=== PATIENT | female | born 1945 | race Caucasian/White ===

== ENCOUNTER 2017-07-14 13:37 | Observation (INO) | payer MEDICARE, BC ==
[~2017-07-14] VITALS: Ht 162.6 cm; Wt 62.4 kg
--- NOTE | ~2017-07-14 | HEMODYNAMI ---
PATIENT:ANGELICA NAJERA MEDICAL RECORD: [id number] : 43 [facility] ADMISSION DATE: 07/14/17 Generatedon:07/15/201711:28 Patient name: ANGELICA NAJERA Patient #: [id number] SSN: : Date of study: 07/15/2017 Page: Of Hemodynamic Procedure Report Patient Data Patient Demographics Procedure consent was obtained First Name: ANGELICA Gender: Female Last Name: DANIA : 1945 [facility] Initial: KIMANI Age: 71 year(s) Patient #: [id number] Race: Unknown Additional ID: [id number] Contact details [address]: [address] [place] [address] State: [place] City: [place] Zip code: [address] Past Medical History Allergies Allergen Reaction Date Comments Reported Other allergy 07/15/2017 PCN Admission Admission Data Admission Date: 07/14/2017 Admission Time: 17:05 Admit Source: Other Room #: D.2114 Weight (lbs.): 136.69 Weight (kg.): 62 Procedure Procedure Types Cath Procedure Diagnostic Procedure [facility] w/Coronaries Procedure Description Procedure Date Procedure Date: 07/15/2017 Procedure Start Time: 11:15 Procedure End Time: 11:25 Procedure Staff Name Function Marcelo Fried MD Performing Physician Wilfredo Youssef RT Monitor Clement Boo RT Scrub Domenico Baer RN Nurse Procedure Data Cath Procedure Fluoroscopy Diagnostic fluoroscopy Total fluoroscopy Time: 0.8 time: 0.8 min min Diagnostic fluoroscopy Total fluoroscopy dose: 47 dose: 47 mGy mGy Contrast Material Contrast Material Type Amount (ml) Isovue 300 54 Entry Location Entry Primary Successful Side Size Upsize Upsize Entry Closure Succes sful Closure Location (Fr) 1 (Fr) 2 (Fr) Remarks Device Remarks Femoral Right 5 Fr Exoseal artery Estimated blood loss: 10 ml Diagnostic catheters Device Type Used For End Catheter Placement MULTIPACK JL 4.0 5Fr Procedure catheter MULTIPACK 3DRC 5Fr Procedure catheter MULTIPACK Pigtail 5 Fr Procedure catheter Procedure Complications No complications Procedure Medications Medication Administration Route Dosage Oxygen etCO2 Nasal cannula 2 l/min Heparin Flush Bag added to field 2 bags (1000units/500ml NS) 0.9% NaCl I.V. 100 ml/hr Plavix P.O. 600 mg Fentanyl I.V. 50 mcg Versed I.V. 1 mg Fentanyl I.V. 50 mcg Versed I.V. 1 mg Fentanyl I.V. 50 mcg Fentanyl I.V. 50 mcg Hemodynamics Rest Heart Rate: 67 (bpm) Pressure Samples Time Site Value (mmHg) Purpose Heart Use Rate(bpm) 11:17 AO 102/52(71) Snapshot 65 Snapshots Pre Cath Intra NCS Post Cath Vital Signs Time Heart Resp SPO2 etCO2 NIBP (mmHg) Rhythm Pain Sedation Rate (ipm) (%) (mmHg) Status Level (bpm) 10:49:20 78 17 98 35.1 128/69(94) NSR 0 (11) 10(A) , No pain 10:53:36 72 16 100 31.4 139/69(107) NSR 0 (11) 10(A) , No pain 10:57:46 71 16 97 32.8 114/67(94) NSR 0 (11) 10(A) , No pain 11:01:56 67 16 97 21.6 108/67(85) NSR 0 (11) 10(A) , No pain 11:06:05 74 17 95 0 108/66(83) NSR 0 (11) 10(A) , No pain 11:10:15 77 17 94 0 102/63(82) NSR 0 (11) 10(A) , No pain 11:14:23 68 16 96 0 109/64(79) NSR 0 (11) 9(A) , No pain 11:18:33 68 16 92 9.7 108/63(81) NSR 0 (11) 9(A) , No pain 11:22:47 64 16 93 0 108/57(77) NSR 0 (11) 9(A) , No pain Medications Time Medication Route Dose Verified Delivered Reason Notes E ffectiveness by by 10:48:33 Oxygen etCO2 2 Marcelo Acuña Per Nasal l/min Fariha Baer RN physician cannula 10:48:42 Heparin Flush added 2 Marcelo Acuña used for Bag to bags Fariha Baer RN procedure (1000units/500ml field NS) 10:49:23 0.9% NaCl I.V. 100 Marcelo Acuña Per ml/hr Fariha Baer RN physician 10:53:40 Plavix P.O. 600 Marcelo Domenico for mg Fariha Baer RN antiplatelet therapy 11:12:04 Fentanyl I.V. 50 Marcelo Domenico for sedation mcg Fariha Baer RN 11:12:10 Versed I.V. 1 mg Marcelo Thompsony for sedation Fariha Baer RN 11:15:40 Fentanyl I.V. 50 Marcelo Domenico for sedation mcg Fariha Baer RN 11:15:45 Versed I.V. 1 mg Marcelo Thompsony for sedation Fariha Baer RN 11:17:25 Fentanyl I.V. 50 Marcelo Domenico for sedation mcg Fariha Baer RN 11:18:52 Fentanyl I.V. 50 Marcelo Thompsony for sedation mcg Fariha Baer RN Procedure Log Time Note 10:29:39 Informed consent obtained and on chart 10:29:42 Admit Source: Other 10:30:05 Diagnostic Cath status Elective 10:30:07 Wilfredo Youssef RT(R) sent for patient. Start room use. 10:30:07 Time tracking: Regular hours (M-F 7:00 - 5:00) 10:30:10 Plan of Care:Hemodynamics will remain stable., Cardiac rhythm will remain stable., Comfort level will be maintained., Respiratory function will remain adequate., Patient/ family verbilizes understanding of procedure., Procedure tolerated without complication., Recovers from procedure without complications.. 10:31:40 H&P Date Dictated: 07/15/2017 Within 30 days and on chart.. 10:42:55 Patient received from Med II to CCL 3 Alert and oriented. Tansferred to table in Supine position. 10:42:55 Warm blankets applied, and shelia hugger turned on for patient comfort. 10:42:56 Correct patient and procedure confirmed by team. 10:42:56 ECG and BP/O2 sat monitors applied to patient. 10:42:58 Pre-procedure instructions explained to patient. 10:42:59 Pre-op teaching completed and patient verbalized understanding. 10:43:02 Family in waiting room. 10:43:04 Patient NPO since Midnight. 10:43:14 Patient allergic to Other allergyPCN 10:43:18 Is the patient allergic to Iodine/contrast media? No. 10:48:11 Vital chart was started 10:48:33 Oxygen 2 l/min etCO2 Nasal cannula was administered by Domenico Baer RN; Per physician; 10:48:42 Heparin Flush Bag (1000units/500ml NS) 2 bags added to field was administered by Domenico Baer RN; used for procedure; 10:49:23 0.9% NaCl 100 ml/hr I.V. was administered by Domenico Baer RN; Per physician; 10:53:40 Plavix 600 mg P.O. was administered by Domenico Baer RN; for antiplatelet therapy; 10:53:40 Baseline sample Acquired. 10:53:46 Rhythm: sinus rhythm 10:53:48 Full Disclosure recording started 10:53:52 Is patient on blood thinner?Yes 10:53:54 ACC The patient was administered the following blood thiners within the last 24 hours: ACCPlavix 10:53:56 Patient diabetic? No. 10:53:57 Patient not . Patient is over age 55. 10:53:59 Previous problem with sedation/anesthesia? No ? 10:54:00 Snore? Yes 10:54:01 Sleep apnea? No 10:54:02 Deviated septum? No 10:54:02 Opens mouth fully? Yes 10:54:03 Sticks out tongue? Yes 10:54:05 Airway obstruction? No ? 10:54:07 Dentures? Yes IN 10:54:11 Pre procedure: right dorsailis pedis pulse 1+ Palpable, but thready & weak; easily obliterated 10:54:18 IV patent on arrival in right wrist with 0.9% NaCl at KVO. 10:54:20 Patient pain scale 0/10 ?. 10:54:22 Lab results completed and on chart. 10:54:25 Right groin area was prepped with chlora-prep and draped in sterile fashion 10:54:27 Alarms reviewed by R. N. 10:54:27 Sharps counted by scrub and verified by R.N. 10:54:32 Use device set Femoral Dx 10:54:34 PERCUTANEOUS ENTRY 19GA needle opened to sterile field. 10:54:34 Tegaderm 4 x 4 (1626W) opened to sterile field. 10:54:35 ACIST Manifold (05929) opened to sterile field. 10:54:36 ACIST Hand Control (91322) opened to sterile field. 10:54:36 ACIST Syringe (65291) opened to sterile field. 10:54:37 Bag Decanter (2002S) opened to sterile field. 10:54:37 Medline Cath Pack ([id number]) opened to sterile field. 10:54:39 DIAGNOSTIC WIRE .035 260cm J wire (443747) opened to sterile field. 10:54:40 DIAGNOSTIC Multipack 5Fr catheter set (VM5949) opened to sterile field. 10:54:51 SHEATH Prelude 5Fr 0.035 (ZNS-8O-32-035) opened to sterile field. 11:02:45 Physician paged 11:06:42 Patient Weight : 136.69 lbs 11:11:20 --------ALL STOP TIME OUT------ 11:11:20 Final Timeout: patient, procedure, and site verified with staff and physician. All members of the team are in agreement. 11:11:23 Right groin site verified by team. 11:11:26 Physical assessment completed. ASA score P 2 - A patient with mild systemic disease as per Marcelo Fried MD. 11:11:29 Sedation plan: IV Moderate Sedation Medication:Versed, Fentanyl 11:12:04 Fentanyl 50 mcg I.V. was administered by Domenico Baer RN; for sedation; 11:12:10 Versed 1 mg I.V. was administered by Domenico Baer RN; for sedation; 11:15:03 Procedure started. 11:15:06 Local anesthetic to right femoral artery with Lidocaine 2% by Marcelo Fried MD.INITIAL ACCESS ONLY 11:15:35 Zero performed for pressure channel P1 11:15:40 Fentanyl 50 mcg I.V. was administered by Domenico Baer RN; for sedation; 11:15:45 Versed 1 mg I.V. was administered by Domenico Baer RN; for sedation; 11:15:51 A 5 Fr sheath was inserted into the Right Femoral artery 11:16:45 A MULTIPACK Pigtail 5 Fr catheter was advanced over the wire and used for Procedure. 11:16:56 LV angiography performed. 11:16:57 LV gram done using GOODMAN 11:17:03 EF : 60 % 11:17:07 Injector settings: Ml/sec: 10, Volume: 20, 11:17:09 Catheter removed. 11:17:20 A MULTIPACK JL 4.0 5Fr catheter was advanced over the wire and used for Procedure. 11:17:25 Fentanyl 50 mcg I.V. was administered by Domenico Baer RN; for sedation; 11:17:38 LCA angiography performed. 11:18:25 Catheter removed. 11:18:30 A MULTIPACK 3DRC 5Fr catheter was advanced over the wire and used for Procedure. 11:18:52 Fentanyl 50 mcg I.V. was administered by Domenico Baer RN; for sedation; 11:18:57 RCA angiography performed. 11:18:59 Catheter removed. 11:19:08 EXOSEAL 5Fr (EX500) opened to sterile field. 11:19:25 Sheath removed intact; hemostasis achieved with Exoseal to the Right Femoral artery. 11:19:27 Procedure ended.(Physican Out) 11:22:03 Fluoroscopy time 00.80 minutes. 11:22:14 Fluoroscopy dose: 47 mGy 11:22:14 Flurop Dose total: 47 11:22:19 Contrast amount:Isovue 300 54ml. 11:22:21 Sharps counted by scrub and verified by R.N. 11:22:23 Insertion/operative site no bleeding no hematoma. 11:22:26 Post-op/insertion site Right Femoral artery dressed using a 4 x 4 and Tegaderm. 11:22:27 Post Procedure Pulses reassessed and unchanged 11:22:33 Post-procedure physical assessment completed. ASA score P 2 - A patient with mild systemic disease as per Marcelo Fried MD. 11:22:35 Post procedure rhythm: unchanged. 11:22:38 Estimated blood loss: 10 ml 11:22:39 Post procedure instruction explained to patient.Patient verbalizes understanding. 11:22:39 Patient needs reinforcement of post procedure teaching. 11:22:44 Procedure and supply charges have been captured, reviewed, submitted and are correct. 11:22:46 Procedure Complication : No complications 11:25:20 Vital chart was stopped 11:25:20 See physician's report for complete and final results. 11:25:24 Report given to PCU. 11:25:28 Patient transfered to PCU with Bed. 11:25:30 Procedure ended. 11:25:30 Full Disclosure recording stopped 11:25:35 End room use (Document Last) Device Usage Item Name Manufacture Quantity Catalog Number Hospital Part Current M inimal Lot# / Charge Number Stock Stock Serial# Code PERCUTANEOUS Cook Medical 1 [id number] 5 ENTRY 19GA needle Tegaderm 4 x 4 3M 1 1626W 247241 832050 957582 5 (1626W) ACIST Manifold Acist 1 03738 463038 152638 581001 5 (31930) [employer] Inc ACIST Hand Acist 1 78741 420763 543404 707610 5 Control (96083) [employer] Inc ACIST Syringe Acist 1 69816 546739 209563 560326 2 0 (16765) [employer] Bag Decanter Microtek 1 2002S 661860 02784 728820 5 (2001S) Medical Inc. Medline Cath Cardinal 1 [id number] 909746 62826 168616 5 Pack Health ([id number]) DIAGNOSTIC WIRE St Romulo 1 656752 020096 587372 725610 3 0 .035 260cm J wire (563257) DIAGNOSTIC Cardinal 1 EJ3526 302297 29247 158139 3 0 Multipack 5Fr Health catheter set (MN5527) SHEATH Prelude Merit 1 [id number]-3Y-82-035 263866 154213 136681 5 5Fr 0.035 Medical (UPG-0D-94-035) MULTIPACK JL Cardinal 1 503322 5 4.0 5Fr Health catheter MULTIPACK 3DRC Cardinal 1 750004 5 5Fr catheter Health MULTIPACK Cardinal 1 807639 5 Pigtail 5 Fr Health catheter EXOSEAL 5Fr Cardinal 1 EX500 261030 897146 779432 1 0 (EX500) Health Signature Audit [place] Stage Time Signature Unsigned Intra-Procedure 07/15/2017 Wilfredo Youssef 11:27:51 AM RT(R) Signatures Monitor : Wilfredo Youssef RT Signature : Date : Time : [facility] [address] [place] [address]
--- NOTE | ~2017-07-14 | OP ---
PATIENT NAME: ANGELICA NAJERA MEDICAL RECORD: [id number] :43 LOCATION:D.M2 D.2114 ADMISSION DATE:07/14/17 SURGEON: PRIMO ROD MD DATE OF OPERATION: 07/15/2017 PROCEDURES: 1. Left heart catheterization. 2. Selective angiography. 3. Left ventriculogram. INDICATIONS: Palpitations, chest pain, near syncope. PROCEDURE IN DETAIL: After informed consent was obtained and after detailed explanation of risks, benefits as well as alternative therapies, the patient elected to proceed with angiogram and heart catheterization. The right femoral area was prepped and draped in normal sterile fashion. The right femoral artery was cannulated via modified Seldinger technique with placement of a 6-Bengali sheath. All catheters exchanged through this sheath. FINDINGS: The left ventriculogram was performed in standard 30-degree GOODMAN view, reveals good cardiac wall motion throughout all segments. Overall ejection fraction estimated 60%. SELECTIVE CORONARY ANGIOGRAPHY: Left main, left anterior descending, left circumflex, right coronary artery are all smooth-walled vessels with no angiographic evidence of coronary artery disease. OVERALL IMPRESSION: 1. No angiographic evidence of coronary artery disease. 2. Normal left heart pressures. 3. Normal left ventricular systolic function. Chest pain is noncardiac in etiology, with standard medical management and treatment of the palpitations and dysrhythmia. TRANSINT:[id number] Voice Confirmation ID: [id number] DOCUMENT ID: [id number] PRIMO ROD MD at 0956 CC: JAZMÍN VELA MD [id number] DICTATION DATE: 07/15/17 1123 SINKER WINDER: 07/15/17 1420 DIS IN 07/15/17 [facility] [address] [place] [address]
[2017-07-14 14:40] LABS: BASOPHILS 0.3 % (0-2); EOSINOPHILS 1.1 % (0-7); HEMATOCRIT 41.5 % (36.0-48.0); HEMOGLOBIN 14.1 g/dL (12-16); IMMATURE GRANULOCYTES 0.8 % (0-5); LYMPHOCYTES 27.4 % (15-50); MCH 30.4 pg (26.0-34.0); MCV 89.4 fL (80.0-100.0); MONOCYTES 9.3 % (2-11); NEUTROPHILS 61.1 % (40-80); PLATELET COUNT 262 10x3/uL (130-400); RBC 4.64 10x6/uL (4.00-5.40); RDW 12.5 % (11.5-14.5); WBC 11.8 10x3/uL (4.8-10.8)
[2017-07-14 15:02] LABS: ALBUMIN 4.2 g/dL (3.4-5.0); ALKALINE PHOSPHATASE 73 U/L (46-116); ALT (SGPT) 29 U/L (10-68); BILIRUBIN - TOTAL 0.69 mg/dL (0.2-1.3); CALC OSMOLALITY 283 mosm/kg (275-300); CARBON DIOXIDE 29.7 mmol/L (21.0-32.0); CHLORIDE - SERUM 100 mmol/L (98-107); CREATININE - SERUM 1.5 mg/dL (0.6-1.3); GLUCOSE 103 mg/dL (74-106); POTASSIUM - SERUM 3.3 mmol/L (3.5-5.1); PROTEIN - SERUM 7.7 g/dL (6.4-8.2); SODIUM 139 mmol/L (136-145); UREA NITROGEN 28 mg/dL (7-18); eGFR NON AFRICAN AMERICAN 36 mL/min (90-120)
[2017-07-14 15:04] LABS: CREATINE KINASE 31 UL (21-215)
[2017-07-14 15:05] LABS: TROPONIN-I < 0.017 ng/mL (0.000-0.060)
[2017-07-14 16:38] LABS: APPEARANCE CLEAR (CLEAR); BILIRUBIN NEGATIVE (NEGATIVE); COLOR YELLOW (YELLOW); GLUCOSE NEGATIVE (NEGATIVE); KETONE NEGATIVE (NEGATIVE); NITRITE NEGATIVE (NEGATIVE); PROTEIN NEGATIVE (NEGATIVE); SPECIFIC GRAVITY 1.015 (1.005-1.020); UROBILINOGEN NORMAL (NORMAL)
[2017-07-14 16:46] LABS: BACTERIA FEW /hpf (NONE SEEN); RED CELLS - URINE OCC /hpf (0-5); WHITE CELLS - URINE 0-5 /hpf (0-5)
[2017-07-14 17:08] LABS: CKMB 0.3 U/L (0.0-3.6); CREATINE KINASE 29 UL (21-215)
[2017-07-14 17:11] LABS: TROPONIN-I < 0.017 ng/mL (0.000-0.060)
[2017-07-14] MEDS ORDERED: LISINOPRIL-HCTZ1 T11 PO (20:43)
[2017-07-14] MEDS ORDERED: BAYER CHEWABLE81 MG PO (20:44)
[2017-07-14] MEDS ORDERED: OXYBUTYNIN CHLOR5 MG PO (20:46)
[2017-07-14] MEDS ORDERED: LIPITOR20 MG PO (20:47)
[2017-07-14 21:39] VITALS: BMI 23.5
[2017-07-14 23:41] LABS: CKMB 0.5 U/L (0.0-3.6); CREATINE KINASE 23 UL (21-215); TROPONIN-I < 0.017 ng/mL (0.000-0.060)
[2017-07-15 04:00] VITALS: BP 144/44
[2017-07-15 06:44] LABS: BASOPHILS 0.4 % (0-2); EOSINOPHILS 2.6 % (0-7); HEMATOCRIT 38.7 % (36.0-48.0); LYMPHOCYTES 42.9 % (15-50); MCH 30.3 pg (26.0-34.0); MCHC 33.6 g/dL (31.0-37.0); MCV 90.2 fL (80.0-100.0); MONOCYTES 9.9 % (2-11); NEUTROPHILS 43.2 % (40-80); PLATELET COUNT 245 10x3/uL (130-400); RBC 4.29 10x6/uL (4.00-5.40); RDW 12.7 % (11.5-14.5)
[2017-07-15 06:47] LABS: WBC 8.2 10x3/uL (4.8-10.8)
[2017-07-15 07:03] LABS: CALC OSMOLALITY 281 mosm/kg (275-300); CALCIUM 8.7 mg/dL (8.5-10.1); CARBON DIOXIDE 28.2 mmol/L (21.0-32.0); CHLORIDE - SERUM 108 mmol/L (98-107); CKMB 0.5 U/L (0.0-3.6); CREATINE KINASE 20 UL (21-215); CREATININE - SERUM 0.9 mg/dL (0.6-1.3); GLUCOSE 89 mg/dL (74-106); POTASSIUM - SERUM 4.4 mmol/L (3.5-5.1); SODIUM 139 mmol/L (136-145); TROPONIN-I < 0.017 ng/mL (0.000-0.060); UREA NITROGEN 27 mg/dL (7-18); eGFR NON AFRICAN AMERICAN 65 mL/min (90-120)
[2017-07-15 08:07] VITALS: Ht 162.6 cm; Wt 62.4 kg
[2017-07-15 08:21] VITALS: BP 105/59
== END 2017-07-15 17:18 | disposition home or self-care (01) ==
LOC: D.ER 13:37 → D.EDHOLD 17:05 → D.M2 17:05 → OBSVTIME 17:07 → D.M2 19:35
PROVIDERS: Emergency Medicine; Family Medicine; Nurse Practitioner Family
DX: R07.89 Other chest pain (principal); R00.2 Palpitations; I10 Essential (primary) hypertension; E78.5 Hyperlipidemia, unspecified

== ENCOUNTER 2017-07-15 17:16 | Observation (INO) | payer MEDICARE, BC ==
[~2017-07-15] VITALS: Ht 162.6 cm; Wt 62.7 kg
[~2017-07-15 17:16] MED LIST: BAYER CHEWABLE81 MG PO; LIPITOR20 MG PO; LISINOPRIL-HCTZ1 T11 PO; OXYBUTYNIN CHLOR5 MG PO
[2017-07-15 20:59] LABS: BASOPHILS 0.2 % (0-2); EOSINOPHILS 0.3 % (0-7); HEMATOCRIT 37.5 % (36.0-48.0); HEMOGLOBIN 12.8 g/dL (12-16); IMMATURE GRANULOCYTES 0.9 % (0-5); LYMPHOCYTES 20.8 % (15-50); MCH 30.6 pg (26.0-34.0); MCHC 34.1 g/dL (31.0-37.0); MCV 89.7 fL (80.0-100.0); MEAN PLATELET VOLUME 10.9 fL (7.4-10.4); MONOCYTES 7.3 % (2-11); NEUTROPHILS 70.5 % (40-80); PLATELET COUNT 268 10x3/uL (130-400); RBC 4.18 10x6/uL (4.00-5.40); RDW 12.8 % (11.5-14.5); WBC 16.4 10x3/uL (4.8-10.8)
[2017-07-15 21:07] LABS: ALBUMIN 3.5 g/dL (3.4-5.0); ALKALINE PHOSPHATASE 64 U/L (46-116); ALT (SGPT) 22 U/L (10-68); CALC OSMOLALITY 280 mosm/kg (275-300); CALCIUM 8.6 mg/dL (8.5-10.1); CARBON DIOXIDE 28.2 mmol/L (21.0-32.0); CHLORIDE - SERUM 106 mmol/L (98-107); GLUCOSE 123 mg/dL (74-106); POTASSIUM - SERUM 4.1 mmol/L (3.5-5.1); PROTEIN - SERUM 6.6 g/dL (6.4-8.2); SODIUM 138 mmol/L (136-145); UREA NITROGEN 25 mg/dL (7-18); eGFR NON AFRICAN AMERICAN 58 mL/min (90-120)
[2017-07-15 21:11] LABS: TROPONIN-I < 0.017 ng/mL (0.000-0.060)
[2017-07-16 02:11] LABS: CREATINE KINASE 18 UL (21-215)
[2017-07-16 02:21] LABS: TROPONIN-I < 0.017 ng/mL (0.000-0.060)
[2017-07-16 06:51] LABS: APPEARANCE CLEAR (CLEAR); BILIRUBIN NEGATIVE (NEGATIVE); COLOR YELLOW (YELLOW); GLUCOSE NEGATIVE (NEGATIVE); KETONE NEGATIVE (NEGATIVE); NITRITE NEGATIVE (NEGATIVE); PROTEIN NEGATIVE (NEGATIVE)
[2017-07-16 07:00] LABS: BASOPHILS 0.5 % (0-2); EOSINOPHILS 1.2 % (0-7); HEMATOCRIT 38.4 % (36.0-48.0); IMMATURE GRANULOCYTES 0.6 % (0-5); LYMPHOCYTES 34.3 % (15-50); MCH 30.4 pg (26.0-34.0); MCHC 33.9 g/dL (31.0-37.0); MCV 89.9 fL (80.0-100.0); MEAN PLATELET VOLUME 10.8 fL (7.4-10.4); MONOCYTES 8.3 % (2-11); NEUTROPHILS 55.1 % (40-80); PLATELET COUNT 225 10x3/uL (130-400); RBC 4.27 10x6/uL (4.00-5.40); RDW 12.8 % (11.5-14.5)
[2017-07-16 07:01] LABS: WBC 8.5 10x3/uL (4.8-10.8)
[2017-07-16 07:36] LABS: CALC OSMOLALITY 284 mosm/kg (275-300); CALCIUM 8.8 mg/dL (8.5-10.1); CARBON DIOXIDE 26.2 mmol/L (21.0-32.0); CHLORIDE - SERUM 108 mmol/L (98-107); CKMB 0.8 U/L (0.0-3.6); CREATINE KINASE 25 UL (21-215); CREATININE - SERUM 0.8 mg/dL (0.6-1.3); GLUCOSE 86 mg/dL (74-106); MAGNESIUM - SERUM 2.2 mg/dL (1.8-2.4); POTASSIUM - SERUM 4.3 mmol/L (3.5-5.1); SODIUM 143 mmol/L (136-145); TROPONIN-I < 0.017 ng/mL (0.000-0.060); eGFR NON AFRICAN AMERICAN 75 mL/min (90-120)
[2017-07-16 07:38] LABS: UREA NITROGEN 16 mg/dL (7-18)
[2017-07-16 13:07] LABS: CKMB 0.3 U/L (0.0-3.6); CREATINE KINASE 21 UL (21-215)
[2017-07-16 13:13] LABS: TROPONIN-I < 0.017 ng/mL (0.000-0.060)
[2017-07-16 15:43] VITALS: BP 143/75; Ht 162.6 cm; Wt 62.7 kg
[2017-07-16 19:00] VITALS: BP 140/67
[2017-07-17 04:00] VITALS: BP 143/65
[2017-07-17 08:36] VITALS: BP 157/67
[2017-07-17 11:52] VITALS: BP 128/60
[2017-07-17 15:40] VITALS: BP 141/62
[2017-07-17 20:00] VITALS: BP 131/65
[2017-07-18] VITALS: BP 117/62
[2017-07-18 05:50] VITALS: BP 106/64
[2017-07-18 08:16] VITALS: BP 118/50
[2017-07-18 11:23] VITALS: BP 148/55
== END 2017-07-18 15:13 | disposition home or self-care (01) ==
LOC: D.ER 17:16 → D.EDHOLD 07-16 00:07 → OBSVTIME 07-16 00:07 → D.M2 07-16 00:07
PROVIDERS: Family Medicine; Physician Assistant
DX: R55 Syncope and collapse (principal); R00.2 Palpitations; I10 Essential (primary) hypertension; E78.5 Hyperlipidemia, unspecified

== ENCOUNTER 2017-08-28 10:33 | Outpatient (CLI) | payer MEDICARE, BC ==
[~2017-08-28] VITALS: Ht 162.6 cm; Wt 62.7 kg
--- NOTE | ~2017-08-28 | HEMODYNAMI ---
PATIENT:ANGELICA NAJERA MEDICAL RECORD: [id number] : 43 LOCATION:[facility] ADMISSION DATE: 08/28/17 Generatedon:08/28/201715:29 Patient name: ANGELICA NAJERA Patient #: [id number] SSN: : Date of study: 08/28/2017 Page: Of Hemodynamic Procedure Report Patient Data Patient Demographics Procedure consent was obtained First Name: ANGELICA Gender: Female Last Name: DANIA : 1945 Middle Initial: KIMANI Age: 71 year(s) Patient #: [id number] Race: Unknown Additional ID: [id number] Contact details [address]: [address] [place] [address] State: [place] City: [place] Zip code: [address] Past Medical History Allergies Allergen Reaction Date Comments Reported Other allergy 07/15/2017 PCN Penicillins 08/28/2017 Admission Admission Data Admission Date: 08/28/2017 Admission Time: 10:33 Lab Results Lab Result Date: 08/28/2017 Lab Result Time: 11:00 Biochemistry Name Units Result Min Max BUN mg/dl 17 --(---*)-- 7 18 Creatinine mg/dl 0.8 --(-*--)-- 0.6 1.3 CBC Name Units Result Min Max Hematocrit % 41.4 -*(----)-- 42 54 Hemoglobin g/dl 14.2 --(*---)-- 13.5 17.5 Procedure Procedure Types Cath Procedure Diagnostic Procedure PPM/ICD PPM Dual Implant Sedation Charges Moderate Sedation up to 30 minutes Procedure Description Procedure Date Procedure Date: 08/28/2017 Procedure Start Time: 14:55 Procedure End Time: 15:28 Procedure Staff Name Function Rodo Akhtar MD Performing Physician Clement Boo RT Monitor Bimal Corado RN Nurse Karla Hopkins RT Scrub Michael Mulligan MD Assisting physician Procedure Data Cath Procedure Fluoroscopy Diagnostic fluoroscopy Total fluoroscopy Time: 6.1 time: 6.1 min min Diagnostic fluoroscopy Total fluoroscopy dose: dose: 538.18 mGy 538.18 mGy Contrast Material Contrast Material Type Amount (ml) Isovue 300 0 Estimated blood loss: 5 ml Procedure Complications No complications Procedure Medications Medication Administration Route Dosage Vancomycin I.V.P.B 1 g Vancomycin Topical 1 g Irrigation Zofran I.V. 4 mg Versed I.V. 1 mg Fentanyl I.V. 50 mcg Oxygen NC 2 l/min Bupivacaine 0.5% 10 ml Lidocaine 1% with added to field 20 ml Epi Versed I.V. 1 mg Fentanyl I.V. 50 mcg Hemodynamics Rest HGB: 14.2 (g/dl) Heart Rate: 72 (bpm) Snapshots Pre Cath Intra NCS Post Cath Vital Signs Time Heart Resp SPO2 etCO2 NIBP (mmHg) Rhythm Pain Sedation Rate (ipm) (%) (mmHg) Status Level (bpm) 14:37:27 76 18 98 0 186/95(111) NSR 0 (11) 10(A) , No pain 14:41:55 65 18 99 0 185/94(120) NSR 0 (11) 10(A) , No pain 14:46:24 67 23 99 0 182/85(144) NSR 0 (11) 10(A) , No pain 14:50:46 72 19 99 35 180/92(131) NSR 0 (11) 10(A) , No pain 14:55:08 80 17 98 33.5 168/97(116) NSR 0 (11) 10(A) , No pain 14:59:32 42 16 94 37.2 163/86(141) NSR 0 (11) 9(A) , No pain 15:03:48 78 15 98 42.4 149/79(111) NSR 0 (11) 9(A) , No pain 15:08:06 84 16 99 37.2 140/85(108) NSR 0 (11) 9(A) , No pain 15:12:20 76 18 96 35 145/78(101) NSR 0 (11) 10(A) , No pain 15:16:38 75 14 99 37.2 153/77(123) NSR 0 (11) 10(A) , No pain 15:20:58 61 21 100 35.7 131/78(111) NSR 0 (11) 10(A) , No pain 15:25:12 75 16 100 35.8 143/77(98) NSR 0 (11) 10(A) , No pain Medications Time Medication Route Dose Verified Delivered Reason Notes Effectiv eness by by 14:40:10 Vancomycin I.V.P.B 1 g Rodo Buffie used for [facility] Corado numerical analysis group manager 14:43:17 Oxygen NC 2 Rodo Buffie used for l/min [facility] Corado numerical analysis group manager 14:43:34 Bupivacaine on 10 ml Rodo Quaker for local 0.5% field [facility] Mulligan MD anesthetic MD 14:43:55 Lidocaine added 20 ml Rodo Cruzian for local 1% with Epi to [facility] Mulligan MD anesthetic field 14:45:33 Zofran I.V. 4 mg Rodo Rubenie Per [facility] Corado RN physician 14:47:31 Vancomycin Topical 1 g Rodo Mirandaie used for Irrigation [facility] Corado RN procedure 14:49:35 Versed I.V. 1 mg Rodo Buffie for [facility] Corado RN sedation 14:49:41 Fentanyl I.V. 50 Rodo Buffie for [facility] Corado RN sedation 15:04:24 Versed I.V. 1 mg Rodo Quaker for [facility] Mulligan MD sedation 15:04:28 Fentanyl I.V. 50 Rodo Quaker for [facility] Mulligan MD sedation MD Procedure Log Time Note 14:27:32 Karla Counts RT(R) sent for patient. Start room use. 14:27:33 Time tracking: Regular hours (M-F 7:00 - 5:00) 14:27:36 Plan of Care:Hemodynamics will remain stable., Cardiac rhythm will remain stable., Comfort level will be maintained., Respiratory function will remain adequate., Patient/ family verbilizes understanding of procedure., Procedure tolerated without complication., Recovers from procedure without complications.. 14:32:43 Patient received from Pre/Post Procedure Room to CCL 3 Alert and oriented. Tansferred to table in Supine position. 14:32:44 Warm blankets applied, and shelia hugger turned on for patient comfort. 14:32:44 Correct patient and procedure confirmed by team. 14:32:45 Signed procedure consent form obtained from patient. 14:32:47 ECG and BP/O2 sat monitors applied to patient. 14:32:48 Pre-procedure instructions explained to patient. 14:32:48 Pre-op teaching completed and patient verbalized understanding. 14:32:49 Family in waiting room. 14:32:51 Patient NPO since Breakfast. 14:36:11 Vital chart was started 14:36:36 Baseline sample Acquired. 14:36:42 Rhythm: sinus rhythm 14:36:54 Full Disclosure recording started 14:37:18 H&P Date Dictated: 08/20/2017 Within 30 days and on chart., H&P Addendum completed by physician on day of procedure. (MUST COMPLETE FOR ALL OUTPATIENTS). 14:37:39 Patient allergic to Penicillins 14:38:37 Is patient on blood thinner?No 14:40:08 Patient diabetic? No. 14:40:10 Vancomycin 1 g I.V.P.B was administered by Bimal Corado RN; used for procedure; 14:40:45 Patient not . Patient is over age 55. 14:40:46 ----Pre-sedation anethsthesia assessment.---- 14:41:08 Previous problem with sedation/anesthesia? Yes NAUSEA 14:41:12 Snore? Yes 14:41:14 Sleep apnea? No 14:41:16 Deviated septum? No 14:41:17 Opens mouth fully? Yes 14:41:18 Sticks out tongue? Yes 14:41:34 Airway obstruction? No ? 14:41:45 Dentures? Yes PARTIAL IN TIGHT 14:41:54 Patient pain scale 0/10 ?. 14:42:06 IV patent on arrival in left antecubital with 0.9% NaCl at O. 14:42:56 Left chest area was prepped with chlora-prep and draped in sterile fashion 14:43:06 Alarms reviewed by R. N. 14:43:17 Oxygen 2 l/min NC was administered by Bimal Corado RN; used for procedure; 14:43:34 Bupivacaine 0.5% 10 ml on field was administered by Michael Mulligan MD; for local anesthetic; 14:43:55 Lidocaine 1% with Epi 20 ml added to field was administered by Michael Mulligan MD; for local anesthetic; 14:44:30 Medtronic 4574-45 PPM Lead opened to sterile field. 14:44:30 Medtronic 4074-52 PPM Lead opened to sterile field. 14:44:31 Medtronic Advisa MRI PPM Dual Generator [id number] opened to sterile field. 14:44:59 PEELAWAY 7FR Safe Sheath (SU7) opened to sterile field. 14:45:00 PEELAWAY 7FR Safe Sheath (SU7) opened to sterile field. 14:45:00 Cautery Tip Fitting Room Maintenance Mechanic opened to sterile field. 14:45:01 Mepilex Dressing (446638) opened to sterile field. 14:45:02 Immobilizer Sling Medium opened to sterile field. 14:45:33 Zofran 4 mg I.V. was administered by Bimal Corado RN; Per physician; 14:47:08 2-0 Ticron Multipack ([id number]) opened to sterile field. 14:47:08 3-0 Vicryl Single Pack [id number] opened to sterile field. 14:47:09 5-0 Monocryl PS2 [id number] opened to sterile field. 14:47:22 Medtronic sales representative church furniture GOMEZ ROLLINS present for procedure. 14:47:31 Vancomycin Irrigation 1 g Topical was administered by Bimal Corado RN; used for procedure; 14:48:37 Lab Result : Creatinine 0.8 mg/dl 14:48:37 Lab Result : BUN 17 mg/dl 14:48:37 Lab Result : Hemoglobin 14.2 g/dl 14:48:38 Lab Result : Hematocrit 41.4 % 14:48:40 Lab results completed and on chart. 14:48:49 Physician arrived 14:48:49 --------ALL STOP TIME OUT------ 14:48:50 Final Timeout: patient, procedure, and site verified with staff and physician. All members of the team are in agreement. 14:48:53 Left chest site verified by team. 14:49:02 Physical assessment completed. ASA score P 2 - A patient with mild systemic disease as per Rodo Akhtar MD. 14:49:05 Sedation plan: IV Moderate Sedation Medication:Versed, Fentanyl 14:49:31 Pre sharps counted by scrub and verified by RN: Sutures: 7; Sponges: 5; Stick needles: 2; Skin needles: 2; Blade: 1; Cautery: 1 14:49:34 Grounding pad site Left thigh. 14:49:35 Versed 1 mg I.V. was administered by Buffie Corado RN; for sedation; 14:49:35 Grounding pad site free from injury. 14:49:41 Fentanyl 50 mcg I.V. was administered by Bimal Corado RN; for sedation; 14:49:46 Use device set CASTRO PPM 14:49:50 Mepilex Dressing (381458) opened to sterile field. 14:50:03 Immobilizer Large opened to sterile field. 14:55:31 Procedure started. 14:55:39 Lidocaine 1% w/epi and Bupivacaine 0.5% was administered to left subclavicular area by Michael Mulligan MD . 14:58:28 Incision made to left subclavicular area. 14:58:31 Generator pocket made/opened. 15:03:07 Left subclavian vein accessed with 7Fr Peel Away Sheath. 15:03:09 Left subclavian vein accessed with 7Fr Peel Away Sheath. 15:03:24 Ventricular lead inserted and advanced. 15:04:05 Atrial lead inserted and advanced. 15:04:24 Versed 1 mg I.V. was administered by Michael Mulligan MD; for sedation; 15:04:28 Fentanyl 50 mcg I.V. was administered by Michael Mulligan MD; for sedation; 15:05:30 Ventricular lead positioned. 15:06:42 Ventricular lead tested. 15:08:44 Atrial lead positioned. 15:12:42 Atrial lead removed. 15:12:48 sheath removed. 15:12:51 Left subclavian vein accessed with 7Fr Peel Away Sheath. 15:12:54 Atrial lead inserted and advanced. 15:13:01 Atrial lead positioned. 15:13:10 Atrial lead tested. 15:15:14 Peel-a-way sheath was split and removed. 15:15:14 Peel-a-way sheath was split and removed. 15:16:43 Atrial lead attachment was completed with 2-0 ticron. 15:17:02 Ventricular lead attachment was completed with 2-0 ticron. 15:17:07 Generator was sutured in place with 2-0 ticron. 15:18:20 Parameters-- Generator: Mode: DDDR. Lower Rate: 60bpm. Upper Rate: 120bpm. 15:19:27 Parameters--Atrial P/R Wave: 1.4mV. Current: 0.5mA; Threshold: 0.8V; Impedence: 748OHMS. 15:19:47 Parameters--Ventricular P/R Wave: 5.9mV. Current: 0.5mA; Threshold: 0.5V; Impedence: 1190OHMS. 15::53 Subcutaneous closure was completed with 3-0 vicryl plus. 15:24:30 Skin closure was completed with 5-0 monocryl. 15:24:33 Lt Chest incision was dressed with Mepilex dressing. 15:24:36 Procedure ended.(Physican Out) 15::56 Fluoroscopy time 06.10 minutes. 15:25:47 Fluoroscopy dose: 538.18 mGy 15::47 Flurop Dose total: 538.18 15::55 Contrast amount:Isovue 300 0ml. 15:25:57 Sharps counted by scrub and verified by R.N. 15:26:23 Insertion/operative site no bleeding no hematoma. 15:26:30 Post-op/insertion site Left Subclavian vein dressed using a Mepilex dressing. 15:26:38 Post left sublavian artery:stable, soft, clean and dry 15:26:39 Post Procedure Pulses reassessed and unchanged 15:26:41 Post-procedure physical assessment completed. ASA score P 2 - A patient with mild systemic disease as per Rodo Akhtar MD. 15:26:45 Post procedure rhythm: paced 15::48 Estimated blood loss: 5 ml 15:26:49 Post procedure instruction explained to patient.Patient verbalizes understanding. 15:26:49 Patient needs reinforcement of post procedure teaching. 15:27:19 Procedure type changed to Cath procedure, Diagnostic procedure, PPM/ICD, PPM Dual Implant, Sedation Charges, Moderate Sedation up to 30 minutes 15:28:06 Procedure and supply charges have been captured, reviewed, submitted and are correct. 15:28:09 Procedure Complication : No complications 15:28:11 Vital chart was stopped 15:28:12 See physician's report for complete and final results. 15:28:13 Report given to PCU. 15:28:15 Patient transfered to PCU with Stretcher. 15:28:17 Procedure ended. 15:28:17 Full Disclosure recording stopped 15:28:22 End room use (Document Last) Device Usage Item Name Manufacture Quantity Catalog Hospital Part Current Minimal Lot# / Serial# Number Charge Number Stock Stock Code Medtronic Medtronic 1 4574-45 [id number] 5 EXP:2019-03-26 SN:[id number] 4574-45 PPM Lead Medtronic Medtronic 1 4074-52 [id number] [id number] 5 EXP:2019-04-29 SN:[id number] 4074-52 PPM Lead Medtronic Medtronic 1 A2DR01 090218 [id number] 5 EXP:9549-96-19SZ:[id number] Advisa MRI PPM Dual Generator A2DR01 PEELAWAY 7FR Microtek 2 SU7 057077 904371 [id number] 10 Safe Sheath [employer] (SU7) Cautery Tip Microtek 1 [id number] 553899 660447 979342 5 Fitting Room Maintenance Mechanic [employer] Mepilex Cardinal 2 661177 743244 966224 369893 5 Dressing Health (836071) Immobilizer Cardinal 1 7921247 386863 129729 795247 5 Sling Medium Health 2-0 Ticron Ethicon 0 [id number] 317442 04039 629306 5 Multipack ([id number]) 3-0 Vicryl Ethicon 1 [id number] 943691 819223 500481 5 Single Pack [id number] 5-0 Monocryl Ethicon 1 Y495G 728500 598956 148157 5 PS2 Y495G Immobilizer Cardinal 1 [id number] 550306 323650 982972 5 Large Health Signature Audit Eidson Stage Time Signature Unsigned Intra-Procedure 08/28/2017 Clement Boo 3:29:00 PM RT(R) Signatures Monitor : Clement Boo RT Signature : Date : Time : [facility] [address] [address] [place], [place] [address]
--- NOTE | ~2017-08-28 | OP ---
PATIENT NAME: ANGELICA NAJERA MEDICAL RECORD: [id number] :43 LOCATION:D.[facility] ADMISSION DATE: SURGEON: PAIGE ERAZO MD DATE OF OPERATION: 08/28/2017 PREOPERATIVE DIAGNOSES: 1. Sick sinus syndrome with pauses. 2. Bradycardia. 3. Hyperlipidemia. POSTOPERATIVE DIAGNOSES: 1. Sick sinus syndrome with pauses. 2. Bradycardia. 3. Hyperlipidemia. PROCEDURE: 1. Left subclavian vein dual lead pacemaker placement. 2. Fluoroscopic interpretation. SURGEON: Paige Erazo MD CO-SURGEON: Rodo Back MD REPORT OF PROCEDURE: The patient's left chest was prepped and draped in sterile fashion. A total of 20 mL of 1% lidocaine with epinephrine was infused in the surrounding tissues. A skin incision was made on the left superolateral chest and a subcutaneous pouch was made over the pectoral fascia. A total of 2 sticks were made into the left subclavian vein and guidewires were advanced with ease. Fluoro was used to note that the wires were in good position in the venous system. The dilator trocar devices were placed over the wires and the wires and dilators were removed. The 2 leads were advanced into the venous system, and at this point, Dr. Back positioned them appropriately in the atrium and ventricle. Once the leads were noted to be resting appropriately, then these were affixed to the pectoral fascia using an interrupted #0 Tycron and then placed on the pacemaker. The pacemaker was placed in the subcutaneous pouch and sutured down with a single #0 Tycron. The subcutaneous tissues were irrigated out with normal saline and then reapproximated with interrupted 3-0 Vicryl. The skin was closed with running subcutaneous 5-0 Monocryl and dressed appropriately. COMPLICATIONS: None. CONDITION: Stable. ANESTHESIA: Local and MAC. BLOOD LOSS: Minimal. TRANSINT:[id number] Voice Confirmation ID: [id number] DOCUMENT ID: [id number] OPERATIVE REPORT [id number] ANGELICA NAJERA CHRISTIAN MD at 1309 CC: [id number] DICTATION DATE: 08/28/17 1526 POWER PLANT ENGINEER: 08/28/17 1629 DEP CLI 08/29/17 [place] [id number]
--- NOTE | ~2017-08-28 | OP ---
PATIENT NAME: ANGELICA NAJERA MEDICAL RECORD: [id number] :43 LOCATION:D.M2 D.2134 ADMISSION DATE: SURGEON: FERNANDO MOREJON MD DATE OF OPERATION: 08/28/2017 PROCEDURE: Lead portion of permanent pacemaker placement. SURGEON: Michael Mulligan MD INDICATION: Sick sinus syndrome with pauses. DESCRIPTION OF PROCEDURE: After the left subclavian was cannulated via modified Seldinger technique via Dr. Mulligan, first under fluoroscopic guidance, the RV lead was placed in RV apex without difficulty. After adequate R waves and thresholds were obtained, the right atrial leads were placed in the right atrial appendage without difficulty. After adequate P waves and thresholds were obtained, the leads were attached to appropriate poles of the generator and the pocket was closed via Dr. Mulligan. IMPRESSION: Successful lead portion of permanent pacemaker placement on Angelica Najera. ESTIMATED BLOOD LOSS: Minimal. DISPOSITION: To the floor, stable. COMPLICATIONS: None. TRANSINT:[id number] Voice Confirmation ID: [id number] DOCUMENT ID: [id number] FERNANDO MOREJON MD at 1017 CC: [id number] DICTATION DATE: 08/28/17 1524 NAVAL MARINE ENGINEER: 08/28/17 1705 REG [facility] [address] [place] [address]
[2017-08-28 11:00] VITALS: BP 158/73; BMI 23.7
[2017-08-28 11:17] LABS: BASOPHILS 0.6 % (0-2); EOSINOPHILS 2.3 % (0-7); HEMATOCRIT 41.4 % (36.0-48.0); HEMOGLOBIN 14.2 g/dL (12-16); LYMPHOCYTES 42.2 % (15-50); MCH 30.7 pg (26.0-34.0); MCHC 34.3 g/dL (31.0-37.0); MCV 89.6 fL (80.0-100.0); NEUTROPHILS 45.9 % (40-80); PLATELET COUNT 220 10x3/uL (130-400); RBC 4.62 10x6/uL (4.00-5.40); RDW 12.2 % (11.5-14.5); WBC 4.9 10x3/uL (4.8-10.8)
[2017-08-28 11:28] LABS: APTT 34.2 SECONDS (22.8-39.4); INR 1.06 (0.85-1.17); PROTIME 13.4 SECONDS (11.6-15.0)
[2017-08-28 11:34] LABS: ANION GAP 12.9 mmol/L (8-16); CALCIUM 9.4 mg/dL (8.5-10.1); CARBON DIOXIDE 28.7 mmol/L (21.0-32.0); CREATININE - SERUM 0.8 mg/dL (0.6-1.3); POTASSIUM - SERUM 3.6 mmol/L (3.5-5.1)
[2017-08-28 16:11] VITALS: BP 137/70; Ht 162.6 cm; Wt 62.7 kg
[2017-08-28 20:00] VITALS: BP 112/65
[2017-08-29] VITALS: BP 125/67
[2017-08-29 04:00] VITALS: BP 128/71
[2017-08-29 09:01] VITALS: BP 147/79
[2017-08-29 12:17] VITALS: BP 120/65
== END 2017-08-29 13:24 | disposition home or self-care (01) ==
LOC: D.CATH 10:33 → D.M2 16:03 → D.CATH 08-29 13:24
PROVIDERS: Internal Medicine Interventional Cardiology
DX: I49.5 Sick sinus syndrome (principal); E78.5 Hyperlipidemia, unspecified; Z01.812 Encounter for preprocedural laboratory examination

== ENCOUNTER → 2019-10-14 09:23 | Outpatient (CLI) | payer MEDICARE, BC ==
[2017-08-28 16:11] VITALS: BMI 23.7
--- NOTE | 2019-10-18 08:54 | EC ---
PATIENT:ANGELICA NAJERA DATE OF SERVICE: 10/14/19 SEX: F MEDICAL RECORD: [id number] DATE OF : 43 LOCATION:D[facility] AGE OF PATIENT: 73 ADMISSION DATE: 10/14/19 REFERRING PHYSICIAN: INTERPRETING PHYSICIAN: FERNANDO MOREJON MD ECHOCARDIOGRAM REPORT ECHO CHARGES 4 ECHO COMPLETE Date: 10/14/19 CLINICAL DIAGNOSIS: HX OF HTN/ MITRAL AND TRICUSPID REGURG ECHOCARDIOGRAPHIC MEASUREMENTS (adult normal given) AC root (d.<3.7cm) 3.3 cm LV Septum d (<1.2 cm> 1.4 cm Valve Excursion 1.3 cm LV Septum (systole) 1.8 cm Left Atria (s.<4.0cm> 3.4 cm LVPW d(<1.2cm) 1.4 cm RV (d.<2.3cm) 3.0 cm LVPW (sytole) 1.7 cm LV diastole(<5.6CM) 4.2 cm MV E-F(>70mm/sec) cm LV systole 2.5 cm LVOT Diameter 1.6 cm MV exc.(>10mm) 0.80 cm Est.ejection fraction (50-75%) % DOPPLER: LVIT cm/sec A 106.0cm/sec E 63.0 cm/sec LA cm/sec RVSP 17 mmHg LVOT 100 cm/sec AOP1/2T m/s Asc. Ao 133 cm/sec RVOT 65 cm/sec RA cm/sec PA 128 cm/sec AV Gradient Peak 7.02 mmHg AV Mean 3.65 mmHg AV Area 1.7 cm MV Gradient Peak 5.58 mmHg MV Mean 1.60 mmHg MV Area cm COMMENTS: Instrumentation Manager: 2 WYATT MASSEY Genetic Coordinator: 3 Dr. Back TAPE# PACS Pericardial Effusion N DATE OF SERVICE: 10/14/2019 Adequate 2D, color flow imaging, spectral Doppler, and M-Mode. LVH is present. LV internal dimensions are normal. Wall motion normal. EF greater than or equal to 55%. Aortic valve is tricuspid. No evidence of stenosis by Doppler interrogation. Left atrium is normal at 3.9 cm. Mitral valve shows no prolapse. Mild MR. Right-sided chambers are grossly normal. Trace TR. ECHOCARDIOGRAM REPORT [id number] ANGELICA NAJERA TRANSINT:[id number] Voice Confirmation ID: [id number] DOCUMENT ID: [id number] FERNANDO MOREJON MD at 0854 CC: [id number] DICTATION DATE: 10/15/19 1432 LEMON PICKER: 10/16/19 0023 DEP CLI 10/14/19 [place] [id number] [place] [id number]
== END | disposition home or self-care (01) ==
LOC: D.HCCECHO 09:23
PROVIDERS: ATTEND Internal Medicine Interventional Cardiology
DX: I10 Essential (primary) hypertension (principal)